=== PATIENT | female | born 1985 | race Caucasian/White ===

== ENCOUNTER 2021-10-02 19:59 | Inpatient (IN) ==
[2021-10-02] MEDS ORDERED: SODIUM CHLORIDE 0.9% 1000ML 1,000 ML IV ONE (20:16)
[2021-10-02 20:37] LABS: Basophils # (auto) 0.03 K/uL (0-0.2); Basophils % (auto) 0.2 %; Eosinophils # (auto) 0.18 K/uL (0-0.50); Eosinophils % (auto) 1.4 %; Hematocrit (blood only) 36.5 % (34.1-44.9); Hemoglobin 12.5 g/dl (12.0-16.0); Immature Granulocytes # (auto) 0.05 K/uL (0.00-0.02); Immature Granulocytes % (auto) 0.4 %; Lymphocytes # (auto) 1.38 K/uL (1.2-3.4); Lymphocytes % (auto) 10.9 %; Mean Corpuscular Hemoglobin 30.9 pg (25.0-34.0); Mean Corpuscular Hgb Conc 34.2 g/dL (32.0-36.0); Mean Corpuscular Volume 90.1 fL (80.0-100.0); Monocytes # (auto) 0.74 K/uL (0.24-0.82); Monocytes % (auto) 5.9 %; Neutrophils # (auto) 10.23 K/uL (1.4-6.5); Neutrophils % (auto) 81.2 %; Platelet Count 345 K/uL (130-400); RDW Coefficient of Variation 12.2 % (11.5-14.5); RDW Standard Deviation 39.8 fL (36.4-46.3); Red Blood Count 4.05 M/uL (3.93-5.22); White Blood Count 12.61 K/ul (4.8-10.8)
[2021-10-02] MEDS ORDERED: miSOPROStoL 200 MCG TAB PR ONE (20:43)
[2021-10-02] MEDS ORDERED: LACTATED RINGER'S 1,000 ML IV PRN (20:43)
[2021-10-02 20:58] LABS: Albumin Globulin Ratio 1.2 (0.9-2); Albumin Level 3.7 gm/dl (3.4-5.0); BUN Creatinine Ratio 7.4 (10-20); Bilirubin,Total 0.6 mg/dl (0.2-1.0); Calcium 9.1 mg/dl (8.5-10.1); Est GFR (African American) 132.3 ml/min; Est GFR (Non-African American) 114.1 ml/min; Potassium 3.4 mmol/L (3.5-5.1); Total Protein 6.7 gm/dl (6.0-8.3)
[2021-10-02] MEDS ORDERED: OXYTOCIN 30 UNITS/500 ML BAG IV PRN (21:26)
[2021-10-02] MEDS ORDERED: IBUPROFEN 600 MG TAB PO PRN (21:26)
[2021-10-02] MEDS ORDERED: ACETAMINOPHEN 325 MG TAB PO PRN (21:26)
[2021-10-02] MEDS ORDERED: DIPHTHERIA/TETANUS/PERTUSSIS 0.5 ML SYR/VIAL IM ONE (21:26)
[2021-10-02] MEDS ORDERED: BENZOCAINE 20% AER SPR 82.5 GM CAN EXT PRN (21:26)
[2021-10-02] MEDS ORDERED: HYDROCORTISONE ACETATE 25 MG SUPP PR PRN (21:26)
[2021-10-02] MEDS ORDERED: bisacodyL 10 MG SUPP PR PRN (21:26)
--- NOTE | 2021-10-02 21:55 | Labor Progress Brief Note ---
Date of Service October 02, 2021 Assessment & Plan (1) demise, less than 22 weeks, delivered, current hospitalization: Plan: demise after miscarriage at 16 weeks pt seen thru ER Placenta spontaneously delivered Good hemosatsis Anticipate disch AM Admission and Anticipated Discharge Date Admission Date: October 02, 2021 Results & Data ([facility]) Vital Signs (Past 12 Hours) Vital Signs Temp Pulse Resp BP Pulse Ox O2 Del Method 10/02/21 21:40 100 H 128/89 10/02/21 20:57 98 H 135/93 10/02/21 20:53 36.9 C 18 10/02/21 20:43 96 H 18 115/78 99 Room Air 10/02/21 20:30 Room Air 10/02/21 20:08 37 C 119 H 18 131/87 98 Room Air
[2021-10-02 22:01] LABS: Hematocrit (blood only) 36.9 % (34.1-44.9); Hemoglobin 12.4 g/dl (12.0-16.0); Mean Corpuscular Hemoglobin 30.8 pg (25.0-34.0); Mean Corpuscular Hgb Conc 33.6 g/dL (32.0-36.0); Mean Corpuscular Volume 91.8 fL (80.0-100.0); Mean Platelet Volume 9.2 fL (9.4-12.3); Platelet Count 339 K/uL (130-400); RDW Coefficient of Variation 12.2 % (11.5-14.5); RDW Standard Deviation 40.8 fL (36.4-46.3); Red Blood Count 4.02 M/uL (3.93-5.22); White Blood Count 15.11 K/ul (4.8-10.8)
--- NOTE | 2021-10-02 23:06 | Labor Progress Brief Note ---
Date of Service October 02, 2021 Assessment & Plan (1) demise, less than 22 weeks, delivered, current hospitalization: Plan: pt doing well wishes to be discharged home after 4 hrs disch home with instructions Admission and Anticipated Discharge Date Admission Date: October 02, 2021 Results & Data ([facility]) Vital Signs (Past 12 Hours) Vital Signs Temp Pulse Resp BP Pulse Ox O2 Del Method 10/02/21 22:40 36.9 C 18 10/02/21 22:25 18 10/02/21 22:10 18 10/02/21 21:55 10/02/21 21:40 10/02/21 22:56 81 125/80 10/02/21 22:41 89 131/84 10/02/21 22:26 86 141/89 H 10/02/21 22:11 76 137/87 10/02/21 21:56 84 125/84 10/02/21 21:40 100 H 128/89 10/02/21 20:57 98 H 135/93 10/02/21 20:53 36.9 C 10/02/21 20:43 96 H 18 115/78 99 Room Air 10/02/21 20:30 Room Air 10/02/21 20:08 37 C 119 H 18 131/87 98 Room Air
--- NOTE | 2021-10-02 23:11 | Consultation Report ---
DATE OF SERVICE: 10/02/2021 OB consult from the Emergency Room. HISTORY OF PRESENT ILLNESS: The patient is a 35-year-old G8, P1, at 16 weeks' gestation, who present ed to the Emergency Room after spontaneous rupture of membranes. In the Emergency Room, she was foun d to have delivered a 16-week fetus. Placenta, however, was intact. OB consult was called. When I e valuated her in the Emergency Room, she had no shortness of breath, no chills, no fever. There was v tahira little bleeding. The patient was resting comfortably in bed. As stated above, had been d elivered. Placenta, however, was still intact. course was unremarkable except for history of recurrent miscarriages. PAST MEDICAL HISTORY: The patient has a history of thyroid disease. PAST SURGICAL HISTORY: History of foot surgery. ALLERGIES: THE PATIENT IS ALLERGIC TO DOXYCYCLINE. FAMILY HISTORY: Noncontributory. OBSTETRIC AND GYNECOLOGIC HISTORY: The patient has a history of recurrent miscarriages. In this , she reports being seen at [facility] where she has been worked up. She has had a first trimester testing. PHYSICAL EXAMINATION: GENERAL: Well-developed, well-nourished white female in no acute distress. VITAL SIGNS: In the ER are stable. HEART: S1 and S2, regular rhythm and rate. LUNGS: Clear to auscultation bilaterally. ABDOMEN: Nontender. PELVIC: The patient has delivered a 16-week with placenta undelivered. EXTREMITIES: No cyanosis, clubbing or edema. ASSESSMENT AND PLAN: A 35-year-old 8, para 1, at 16 weeks demise. Infant was delivere d in bed. The patient will be sent to labor and delivery where she will be admitted and the placenta delivered. Job ID: [id number]
[2021-10-02 23:24] LABS: Partial Thromboplastin Time 26.5 Seconds (21.0-31.0); Prothrombin Time 10.8 Seconds (9.0-12.0)
--- NOTE | 2021-10-03 01:33 | Emergency Department Note ---
Impression & Plan demise, less than 22 weeks, delivered, current hospitalization ED Provider Note NAME: DAVID KONG AGE: 35 SEX: F ARRIVES VIA: Walk-In INFORMANT: Patient ED PROVIDER(S): Ha Lemus MD CHIEF COMPLAINT: Miscarriage PLAN: Disposition: Admit MEDICAL DECISION MAKING: The patient is a pleasant 35-year-old woman who presents to the emergency department for evaluation of acute miscarriage in the setting of being 16 weeks . Patient reports feeling water break at approximately 1900 and then had delivery of her fetus in route. Reports having episodes of diarrhea with nausea over the past several days. She reports having some spotting but denied any vaginal bleeding. The patient reports having a healthy 10-year-old son but since then has had numerous miscarriages but never as far along as now. On arrival, the patient is no acute distress, afebrile heart in the 110s and vital signs otherwise stable. On examination the patient does have a fetus delivered, still attached by umbilical cord to placenta which has yet to be delivered. No active hemorrhage. Case was discussed with Seven ALICEA on-call, Dr. Parry. Appreciate consultation and evaluation the bedside. Patient was subsequently admitted to the OB floor for further management. WBC 12K nonspecific. H/H and platelets within normal limits. Chemistry Metabolic acidosis. LFTs without significant abnormality. COVID-19 RNA, LORI test was negative. Blood type was O+, antibody screen negative. Triage Nursing notes reviewed and agree them. Prior medical records reviewed Vital Signs: reviewed and remarkable for tachycardia. Differential diagnosis: Etiologies such as threatened AB, miscarriage, ectopic , dysfunction uterine bleeding, bleeding dyscrasia, trauma, infection, as well as others were entertained. ER treatment provided: See below. Diagnostics interpreted by me: Cardiac Monitoring: An order for continuous cardiac monitoring was placed and demonstrated sinus tachycardia, 119 bpm, no ectopy. 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 Patient reports feeling water break at approximately 1900 and then had delivery of her fetus in route. Reports having episodes of diarrhea with nausea over the past several days. She reports having some spotting but denied any vaginal bleeding. The patient reports having a healthy 10-year-old son but since then has had numerous miscarriages but never as far along as now. ROS: See above HPI for pertinent positives & negatives. A total of 10 systems reviewed and were otherwise negative. VITALS:See Below PHYSICAL EXAMINATION: GENERAL: Awake, alert, uncomfortable-appearing, in no distress HENT: Normocephalic, atraumatic. Oropharynx with dry mucous membranes and otherwise unremarkable. EYES: Normal conjunctiva. Sclera non-icteric. NECK: Supple. No nuchal rigidity. FROM. No JVD. RESPIRATORY: Clear to auscultation. CARDIAC: Tachycardic rate, normal rhythm. Extremities warm and well perfused. Pulses equal. ABDOMEN: Soft, non-distended. No tenderness to palpation. No rebound or guarding. No masses. : fetus delivered, still attached by umbilical cord to placenta which has yet to be delivered. No hemorrhage. MUSCULOSKELETAL: Chest examination reveals no tenderness. The back is symmetrical on inspection without obvious abnormality. There is no CVA tenderness to palpation. No joint edema. LOWER EXTREMITIES: Calves are equal size bilaterally and non-tender. No edema. No discoloration. NEURO: Normal sensorium. No sensory or motor deficits noted. SKIN: No rash or jaundice noted. 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 Beliefs That Will Affect Care: None marital status: Single Current Living Situation: Family Other Information That Helps Us Care for You: No Feels Safe at Home: Yes Safety Concerns: Feels Safe At This Time Assistive Devices: Glasses Allergies Allergies Allergy/AdvReac Type Severity Reaction Status Date / Time tetracycline Allergy Unknown DOXYCYCLINE Verified 08/09/11 22:00 Home Meds Home Medications Medication Instructions Recorded Confirmed Multivit/Min/Iron/Fol Ac/Pren 1 tab PO DAILY #0 tabs 08/23/11 10/03/21 ( Vitamin) OMEPRAZOLE (Prilosec) 20 mg PO DAILY ##0 08/23/11 10/03/21 Previous Rx's Medication Instructions Recorded ibuprofen 600 mg tablet 600 mg PO Q4H #30 tabs 10/02/21 Results & Data (ED) Vital Signs Vital Signs - 24 hr 10/02/21 20:08 10/02/21 20:30 Temperature 37 C Temperature Source Oral Pulse Rate 119 H Pulse Strength Normal Respiratory Rate 18 Respiratory Effort / Characteristics Spontaneous Respiratory Depth Normal Blood Pressure 131/87 Blood Pressure Mean 101 Pulse Oximetry 98 Oxygen Delivery Method Room Air Room Air Sepsis Recent Fever Within 48 Hours No Sepsis New/Unexplained Change in Mental Status No Sepsis Action Taken by Nursing No Action Required Laboratory Data Attestation: I reviewed the patient's lab results. Result diagrams: 10/02/21 21:39 10/02/21 20:10 Lab Results 10/02/21 10/02/21 10/02/21 Range/Units 20:10 20:10 20:10 WBC 12.61 H (4.8-10.8) K/ul RBC 4.05 (3.93-5.22) M/uL Hgb 12.5 (12.0-16.0) g/dl Hct 36.5 (34.1-44.9) % MCV 90.1 (80.0-100.0) fL MCH 30.9 (25.0-34.0) pg MCHC 34.2 (32.0-36.0) g/dL RDW Std Deviation 39.8 (36.4-46.3) fL RDW Coeff of Joe 12.2 (11.5-14.5) % Plt Count 345 (130-400) K/uL MPV 9.0 L (9.4-12.3) fL Immature Gran % (Auto) 0.4 % Neut % (Auto) 81.2 % Lymph % (Auto) 10.9 % Harding % (Auto) 5.9 % Eos % (Auto) 1.4 % Baso % (Auto) 0.2 % Neut # (Auto) 10.23 H (1.4-6.5) K/uL Lymph # (Auto) 1.38 (1.2-3.4) K/uL Harding # (Auto) 0.74 (0.24-0.82) K/uL Eos # (Auto) 0.18 (0-0.50) K/uL Baso # (Auto) 0.03 (0-0.2) K/uL Immature Gran # (Auto) 0.05 H (0.00-0.02) K/uL Sodium 133 L (136-145) mmol/L Potassium 3.4 L (3.5-5.1) mmol/L Chloride 104 (98-107) mmol/L Carbon Dioxide 20 L (21-32) mmol/L Anion Gap 9 (3-11) BUN 5 L (6-23) mg/dl Creatinine 0.68 (0.6-1.2) mg/dl Est Cr Clr Drug Dosing 117.0 ml/min Est GFR ( Amer) 132.3 ml/min Est GFR (Non-Af Amer) 114.1 ml/min BUN/Creatinine Ratio 7.4 L (10-20) Glucose 105 H (70-99(Fasting)) mg/dl Calcium 9.1 (8.5-10.1) mg/dl Total Bilirubin 0.6 (0.2-1.0) mg/dl AST 12 L (13-39) U/L ALT 4 L (7-52) U/L Alkaline Phosphatase 57 (34-104) U/L Total Protein 6.7 (6.0-8.3) gm/dl Albumin 3.7 (3.4-5.0) gm/dl Globulin 3.0 (2.5-4.0) gm/dl Albumin/Globulin Ratio 1.2 (0.9-2) Lipase 42 (11-82) U/L TSH 2.535 (0.300-4.500) uIu/ml SARS-CoV-2, RNA, NAAT (NEGATIVE) Blood Type Antibody Screen 10/02/21 10/02/21 Range/Units 20:18 20:30 WBC (4.8-10.8) K/ul RBC (3.93-5.22) M/uL Hgb (12.0-16.0) g/dl Hct (34.1-44.9) % MCV (80.0-100.0) fL MCH (25.0-34.0) pg MCHC (32.0-36.0) g/dL RDW Std Deviation (36.4-46.3) fL RDW Coeff of Joe (11.5-14.5) % Plt Count (130-400) K/uL MPV (9.4-12.3) fL Immature Gran % (Auto) % Neut % (Auto) % Lymph % (Auto) % Harding % (Auto) % Eos % (Auto) % Baso % (Auto) % Neut # (Auto) (1.4-6.5) K/uL Lymph # (Auto) (1.2-3.4) K/uL Harding # (Auto) (0.24-0.82) K/uL Eos # (Auto) (0-0.50) K/uL Baso # (Auto) (0-0.2) K/uL Immature Gran # (Auto) (0.00-0.02) K/uL Sodium (136-145) mmol/L Potassium (3.5-5.1) mmol/L Chloride (98-107) mmol/L Carbon Dioxide (21-32) mmol/L Anion Gap (3-11) BUN (6-23) mg/dl Creatinine (0.6-1.2) mg/dl Est Cr Clr Drug Dosing ml/min Est GFR ( Amer) ml/min Est GFR (Non-Af Amer) ml/min BUN/Creatinine Ratio (10-20) Glucose (70-99(Fasting)) mg/dl Calcium (8.5-10.1) mg/dl Total Bilirubin (0.2-1.0) mg/dl AST (13-39) U/L ALT (7-52) U/L Alkaline Phosphatase (34-104) U/L Total Protein (6.0-8.3) gm/dl Albumin (3.4-5.0) gm/dl Globulin (2.5-4.0) gm/dl Albumin/Globulin Ratio (0.9-2) Lipase (11-82) U/L TSH (0.300-4.500) uIu/ml SARS-CoV-2, RNA, NAAT NEGATIVE (NEGATIVE) Blood Type O Positive Antibody Screen NEGATIVE Administered Medications Discontinued Medications Sodium Chloride (Nss 1000ml) 1,000 mls @ 999 mls/hr IV .Q1H1M ONE Stop: 10/02/21 21:16 Last Admin: 10/02/21 21:01 Dose: Not Given Documented By: DIANE Lactated Ringer's (Lr) 1,000 mls @ 125 mls/hr IV .Q8H PRN; Protocol PRN Reason: L&D Protocol Stop: 10/04/21 20:42 Last Infusion: 10/03/21 00:00 Dose: 0 mls/hr Documented By: Admin: 10/02/21 21:18 Dose: 125 mls/hr Documented By: AL Oxytocin (Pitocin) 30 units in 500 mls @ 333.333 mls/hr IV .Q1H30M PRN; Protocol PRN Reason: Bleeding Control Stop: 11/01/21 21:25 Last Titration: 10/02/21 22:00 Dose: 0 units/hr, 0 mls/hr Documented By: Admin: 10/02/21 21:20 Dose: 59.94 units/hr, 999 mls/hr Documented By: AL Co-signed By: OSMAN Misoprostol (Misoprostol 200 Mcg Tab) 800 mcg ME NOW ONE Stop: 10/02/21 20:44 Last Admin: 10/02/21 21:11 Dose: 800 mcg Documented By: AL Discharge Plan Visit Data Chief Complaint: Vaginal Bleeding Stated Complaint: Vaginal Bleeding, MISCARRAIGE ED Provider: Ha Lemus Discharge Problem: demise, less than 22 weeks, delivered, current hospitalization Patient Disposition: Admitted As Inpatient Discharge Instructions Interventions: ED Discharge Assessment Last Done: 10/02/21 20:43
[2021-10-03 02:17] LABS: Appearance Urine Clear (Clear); Bacteria Urine Automated Negative (Negative); Bilirubin Urine Negative (Negative); Blood Urine 3+ (Negative); Color Urine Red; Glucose Urine UA Negative (Negative); Ketones Urine 1+ (Negative); Leukocyte Esterase Urine Trace (Negative); Nitrite Urine Negative (Negative); Protein Urine 1+ (Negative); RBC Urine Automated >30 /hpf (0-4); Specific Gravity Urine 1.008 (1.000-1.030); Urobilinogen Urine Negative (Negative); pH Urine 5.5 (4.5-7.5)
[2021-10-03 02:47] LABS: Amphetamines+Metham, Urine Neg (Neg); Barbiturates, Urine Neg (Neg); Benzodiazepine, Urine Neg (Neg); Cocaine, Urine Neg (Neg); MDMA (Ecstacy), Urine Neg (Neg); Methadone, Urine Neg (Neg); Opiate, Urine Neg (Neg); Phencyclidine, Urine Neg (Neg)
--- NOTE | 2021-10-03 06:20 | Delivery Summary ---
DELIVERY NOTE The patient was seen in the emergency room, she is a 35-year-old G8, P1 at 16 weeks, presen homer to the Emergency Room after spontaneous rupture of membranes. In the Emergency Room, she delivered a demise 16-week fetus. OB was called. On arrival to the emergency Room patient had the fetus delivered. Placenta was intact. The patient was brought up to labor and delivery where the co rd was clamped and cut. The patient delivered the placenta spontaneously. Speculum exam showed she still some retained placenta, which was easily removed through the cervix with a ring forceps. All instruments were removed from the vagina and accounted for x2. Estimated blood loss was about 30 0 mL. Uterus is firm. There is good hemostasis and the patient is being kept here for observation. Job ID: [id number]
[2021-10-03] MEDS ORDERED: PRENATAL VITAMIN 1 TAB PO SCH (08:00)
[2021-10-03] MEDS ORDERED: DOCUSATE SODIUM 100 MG CAP PO SCH (08:00)
[2021-10-03 08:12] LABS: Estimated Average Glucose 97 mg/dl
[2021-10-03] MEDS ORDERED: bisacodyL 5 MG TABEC PO SCH (20:00)
[2021-10-09 17:47] LABS: Herpes Simplex Ab IgG-2 <0.90 INDEX; Interpretation DNR; PTT LA Screen 31 sec (<=40); Rubella IgG 1.39 INDEX; Toxoplasma Gondii IgM <8.00 AU/mL
[2021-10-13 11:17] LABS: Chlamydia Source GENITAL
--- NOTE | 2021-10-18 20:43 | Discharge Summary (DS) ---
DATE OF ADMISSION: 10/02/2021 DATE OF DISCHARGE: 10/03/2021 CHIEF COMPLAINT: demise at 16 weeks. HISTORY OF PRESENT ILLNESS: This is a 35-year-old G8, P1, at 16 weeks who presented to the Emergency Room after a spontaneous rupture of membranes and delivery of infant on arrival to the ER. The patient already delivered an . Cord was intact and placenta was not delivered yet. The pa tient was brought up to labor and delivery, given Cytotec where she eventually spontaneously delivere d the placenta. PAST MEDICAL HISTORY: 1. History of habitual . 2. Gastroesophageal reflux disease. PAST SURGICAL HISTORY: None. SOCIAL HISTORY: The patient denies tobacco, drug or alcohol use. FAMILY HISTORY: Noncontributory. ALLERGIES: ALLERGIC TO DOXYCYCLINE. FAMILY HISTORY: Noncontributory. REVIEW OF SYSTEMS: As dictated above. PHYSICAL EXAMINATION: VITAL SIGNS: On 10/03/2021, blood pressure is 124/81, respiration is 18, temperature is 36.8. HEART: S1 and S2 regular rhythm and rate. LUNGS: Clear to auscultation bilaterally. ABDOMEN: Nontender, nondistended. EXTREMITIES: No cyanosis, clubbing or edema. LABORATORIES: On 10/03/2021, hemoglobin of 12.4, hematocrit of 36.9. CONDITION ON DISCHARGE: Stable. OPERATIONS: demise at 16 weeks. Spontaneous delivery of a 16-week gestation fetus. DISCHARGE DIAGNOSIS: Post-delivery of a 16-week fetus. PLAN ON DISCHARGE: The patient is discharged home with instructions regarding activity, diet, and [facility] appointment. Job ID: [id number]
== END 2021-10-03 02:00 | disposition home or self-care (01) | DRG 807 ==
LOC: ED 19:59 → 4S1 20:43

== ENCOUNTER 2023-01-09 11:06 | Inpatient (IN) ==
[2023-01-09] MEDS ORDERED: OXYTOCIN 30 UNITS/NSS 30 UNITS/500 ML BAG IV PRN (11:46)
[2023-01-09] MEDS ORDERED: LIDOCAINE 1% LOCAL 20 ML VIAL INFIL PRN (11:46)
[2023-01-09] MEDS ORDERED: DINOPROSTONE 10 MG INSERT PV ONE (11:46)
[2023-01-09] MEDS ORDERED: LEVOTHYROXINE SODIUM 125 MCG TABLET PO ONE (12:00)
[2023-01-09] MEDS ORDERED: PANTOprazole 40 MG TAB PO SCH (12:00)
--- NOTE | 2023-01-09 12:10 | History & Physical Report ---
Date of Service January 09, 2023 Assessment & Plan (1) Gestational [-induced] hypertension without significant pro teinuria, complicating childbirth: Plan: 37 yo AT 37.3 Wks, with GHTN VSS Afebrile FHR reassuring GBS negative Cervix unfavorable Plan to admit, labs, cervical ripening with Cervidil Discussed what to expect All questions were answered. (2) Hypothyroid: Admission and Anticipated Discharge Date Admission Date: January 09, 2023 History of Present Illness Primary Care Provider: NO PCP Patient is a 37-year-old at 37 weeks and 3 days of gestation who was scheduled for IOL for GTHN. Her has been complicated by, 1. Gestational hypertension during this , on labetalol, 2. History of recurrent spontaneous , last 1 was at 16 weeks on 2021, 3. Hypothyroidism during , Patient has no complaints. She denies headaches, change in her vision, nausea vomiting, epigastric or right upper quadrant pain. She denies contractions, leakage of fluid, vaginal bleeding. She reports good movements. Allergies Allergy/AdvReac Type Severity Reaction Status Date / Time tetracycline Allergy Unknown DOXYCYCLINE Verified 08/09/11 22:00 Home Medications Medication Instructions Recorded Confirmed Type Multivit/Min/Iron/Fol Ac/Pren 1 tab PO DAILY #0 tabs 08/23/11 01/09/23 History ( Vitamin) OMEPRAZOLE (Prilosec) 20 mg PO DAILY ##0 08/23/11 01/09/23 History ferrous sulfate 325 mg (65 mg 325 mg PO DAILY 01/04/23 01/09/23 History iron) tablet (iron) labetalol 100 mg tablet 100 mg PO TID 01/04/23 01/09/23 History levothyroxine 125 mcg capsule 125 mcg PO DAILY 01/04/23 01/09/23 History Patient History Medical History (Updated 01/09/23 @ 12:09 by Danae Quiros MD) Left ACL tear with repair PUPP (pruritic urticarial papules and plaques of ) Polyhydramnios Hypothyroid Patient's mom has Grave's Disease GERD (gastroesophageal reflux disease) History of recurrent miscarriages Family History Mother Graves disease Grandmother (Maternal) Stroke Grandmother (Maternal) Hypertension Other Family history non-contributory Social History Smoking Status: Never smoker Hx Alcohol Use: No Hx Substance Use: No Preferred Language: Somali Communication Ability: Effective 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 Operator Required: No Beliefs That Will Affect Care: None marital status: Single marital status details: Phani Morales Current Living Situation: Family current occupational status: employed current occupation: [employer] Feels Safe at Home: Yes Diet: regular Dental Care, Regularly: No Sunscreen Use: Yes Assistive Devices: None OB History 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 2012, 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 No h/o STD Review of Systems as per Subjective / HPI Physical Exam Constitutional: WD/WN, vitals as above well developed, well nourished and comfortable Gastrointestinal (Abdomen): normal bowel sounds, soft, nontender, no hepatosplenomegaly (GRAVID) Genitourinary: normal external appearance OB Exam Abdomen: + vertex (Confirmed by bed side US) Manual OB Exam: + cervical dilation 1 cm, + cervical effacement 50% and + station high (-4) OB Exam Monitor Tracing: + external uterine monitor used and + category I Results & Data Vital Signs (Past 12 Hours) Vital Signs Pulse BP 01/09/23 11:42 95 H 127/86 01/09/23 11:25 108 H 130/92
[2023-01-09 12:57] LABS: Hematocrit (blood only) 31.9 % (37.0-47.0); Hemoglobin 10.6 g/dl (12.0-16.0); Mean Corpuscular Hemoglobin 29.8 pg (25.0-34.0); Mean Corpuscular Hgb Conc 33.2 g/dL (32.0-36.0); Mean Corpuscular Volume 89.6 fL (80.0-100.0); Mean Platelet Volume 9.6 fL (9.4-12.4); Platelet Count 326 K/uL (130-400); RDW Coefficient of Variation 14.1 % (11.5-14.5); RDW Standard Deviation 46.2 fL (36.4-46.3); Red Blood Count 3.56 M/uL (4.20-5.40); White Blood Count 9.03 K/ul (4.8-10.8)
[2023-01-09] MEDS: LABETALOL HCL 100 MG TAB PO SCH ×2 (14:19→20:56)
--- OUTSIDE RECORDS SUMMARY | 2023-01-09 17:58 | External Medical Summary | Summary of Care ---
Author Name Unknown Organization [facility] Address [address] [place] [address] Phone [phone] Care Team Providers Care Lyric Writer Name Role Phone Tunde Levi MD Primary Care Provider + Encounter Details Date Type Department Care Team (Late st Contact Info) Description 01/09/2023 Orders Only Gynecology/Obstetrics [facility] [address] [facility] [place] [address] Anabela Stallworth CRNP [address] [place] [address] Allergies Active Allergy Reactions Criticality Noted Date Comments Doxycycline 12/22/2003 documented as of this encounter (statuses as of 01/09/2023) Medications Medication Sig Dispensed Refills Start Date End Date Status MV-Min-Fe Fum-FA-DHA ( 1) 30-0.975-200 MG Capsule Take 1 Cap by mouth daily. 0 Active Pantoprazole Sodium 40 MG Oral Tablet Delayed Release (Protonix) Take 1 Tablet by mouth in the morning. 90 Tablet 3 06/29/2022 Active Levothyroxine Sodium 100 MCG Oral Tablet (Levoxyl)Indications :Hypothyroidism, unspecified type Take 1 Tablet by mouth in the morning. (at least 30 min prior to breakfast or other meds). 90 Tablet 1 08/24/2022 Active Breast PumpIndications:[place] st feeding status of mother Double electric pump, Z39.1, JUNE 01/26/23 1 Each 0 11/07/2022 Active Levothyroxine Sodium 25 MCG Oral Tablet (Levoxyl)Indications :Hypothyroid in , antepartum Take 1 Tablet by mouth in the morning. (at least 30 min prior to breakfast or other meds). Take WITH 100 mcg dose.. 90 Tablet 1 11/08/2022 Active Labetalol HCl 100 MG Oral Tablet (Normodyne)Indicatio ns:HTN in , chronic Take 2 Tablets by mouth in the morning and 2 Tablets at noon and 2 Tablets before bedtime. 0 12/03/2022 Active documented as of this encounter (statuses as of 01/09/2023) Active Problems Problem Noted Date Diagnosed Date Polyhydramnios 12/28/2022 Overview: Mild at 35 weeks with 33 completed weeks gestation 11/13 Gestational hypertension without significant pro teinuria 12/07/2022 Overview: Labetalol 200 mg TID BP this morning at home was 137/82 Patient reports lingering headache for several days, poor relief with Tylenol Denies blurred vision, numbness or tingling of face/arms Reports + swelling in hands and feet, but not any increase from last visit Denies abdominal discomfort Is feeling + movement Reviewed s/s of preeclampsia and when to call OB provider BP Readings from Last 10 Encounters: 12/07/22 : 132/84 12/03/22 : 140/90 11/29/22 : 110/80 11/26/22 : 130/82 11/23/22 : 140/92 11/07/22 : 124/76 10/09/22 : 128/80 09/11/22 : 120/72 09/06/22 : 124/72 08/28/22 : 126/82 Baseline Preeclampsia Labs Lab Results Component Value Date/Time PLATELET AUTO - [facility] 365 11/23/2022 03:15 PM CREATININE - [facility] 0.6 11/26/2022 02:55 PM AST - [facility] 9 (L) 11/23/2022 03:15 PM ALT - [facility] <5 (L) 11/23/2022 03:15 PM PROTEIN/ CREATININE RATIO, URINE - [facility] 97 11/23/2022 02:45 PM Last Assessment & Plan: I reviewed the ultrasound. The anatomy that was visualized appears unremarkable and the amniotic fluid volume is elevated at 27 cm, indicating mild polyhydramnios. The overall estimated weight is consistent with the 23rd percentile for the gestational age. The biophysical profile is 8 out of 8. As the patient will be delivered at 37 weeks of gestation due to gestational hypertension, there is no clinical indication for return. PUPPP (pruritic urticarial p apules and plaques of ) 12/07/2022 Health counseling 11/23/2022 Overview: Problem Action Taken Date entered Entered by Date resolved Current needs or questions Patient denies having any current needs or questions 11/23/2022 Monica Bean RN 11/23/2022 Problem Action Taken Date entered Entered by Date resolved Current needs or questions Patient denies having any current needs or questions 12/07/2022 Monica Bean RN 12/07/2022 Problem Action Taken Date entered Entered by Date resolved Current needs or questions Patient denies having any current needs or questions 12/18/2022 Monica Bean RN 12/18/2022 Problem Action Taken Date entered Entered by Date resolved Current needs or questions Patient denies having any current needs or questions 12/25/2022 Gabriela Rudd RN 12/25/2022 Problem Action Taken Date entered Entered by Date resolved Current needs or questions Patient denies having any current needs or questions 12/28/2022 Monica Bean RN 12/28/2022 Problem Action Taken Date entered Entered by Date resolved Current needs or questions Patient denies having any current needs or questions 01/01/2023 Monica Bean RN 01/01/2023 Problem Action Taken Date entered Entered by Date resolved Current needs or questions Patient denies having any current needs or questions 01/08/2023 Gabriela Rudd RN 01/08/2023 Uterine fibroid in 09/03/2022 Last Assessment & Plan: The overall estimated weight is consistent with the 30th percentile for the gestational age and the anatomy that was visualized appears unremarkable. The amniotic fluid volume is normal at 21 cm and the fetus is in the vertex presentation. Medication exposure during first trimester of pr egnancy 06/18/2022 Overview: Medication exposure to Adderall for ADD which she stopped with knowledge of the Last Assessment & Plan: Discussed that every woman has a background risk for a 3-5% chance of having a baby with a defect. We review the risks and benefits to promote discussion between the the prescribing provider and patient but ultimately it is the patient and prescribing provider's decision. It is important to consider risk to the fetus versus risk of untreated illness. In some cases it is reasonable to continue these medications in , but this must be determined on an individualized basis. Adderall (dextroamphetamine/amphetamine). Crosses Placenta. There are no adequate and well-controlled studies in women. Amphetamines should be used during only if the potential benefit justifies the potential risk to the fetus. Nonteratogenic Effects: Infants born to women who are dependent on amphetamines have an increased risk of premature delivery, low weight, and may experience symptoms of withdrawal (dysphoria, agitation, and significant lassitude). AMA (advanced maternal age) multigravida 35+ 06/2022 Overview: Age 37 at [facility] Desires Qnatal Last Assessment & Plan: She presents for a anatomy survey secondary to AMA. She has a history of hypothyroidism, class I obesity, recurrent loss, and ADHD (not currently on medications). Labs reviewed: -- cffDNA low risk for aneuploidy -- msAFP low risk for ONTD -- TSH 1.54 on 08/09/22 -- early 1 hour GCT elevated, 3 hour GTT normal We reviewed the results of today's ultrasound. The estimated weight is appropriate for gestational age. The visualized anatomy is unremarkable in appearance. The amniotic fluid amount appears normal. A small posterior retroplacental fibroid measuring 2.4 cm is noted. We discussed that ultrasound is not able to identify all anomalies, but it is reassuring that no anomalies were seen today. Hypothyroid in , antepartum 06/15/2022 Overview: Hypothyroidism Denies history of Graves Disease Recent medication increase to Levothyroxine 125 mcg Lab Results Component Value Date/Time TSH - [facility] 3.52 11/07/2022 07:53 AM TSH - [facility] 3.42 11/07/2022 07:53 AM TSH - [facility] 1.99 09/01/2018 04:54 PM Last Assessment & Plan: CONSIDERATIONS: Discussed with the patient that uncontrolled maternal hypothyroidism is associated with compromised neuropsychological development of the developing fetus in addition to an increased risk of miscarriage, , preeclampsia, placental abruption, low weight infants, and IUFD. These risks are modifiable with thyroid-replacement medications. Thyroid-replacement therapies are safe to use during and essential to normal development. One third of hypothyroid patients will require increased T4 supplementation in . Discussed that she should space her thyroxine dose and her vitamin, iron or calcium doses by 2-3 hours as these can interfere with thyroxine absorption. If hypothyroidism is due to treated Graves' disease, the fetus may be at risk for or goiter/hyperthyroidism due to the residual presence of maternal thyroid receptor antibodies (TRAb). RECOMMENDATIONS: In women with pre- diagnosis of hypothyroidism, recommend assessing TSH every 4-6 weeks until the patient is euthyroid based on TSH (first trimester, 0.1-2.5 mIU/L; second trimester, 0.2-2.5 mIU/L; third trimester, 0.3-2.5 mIU/L). After any adjustment of thyroid replacement dosing, recheck TSH 4-6 weeks later. Once euthyroidism is attained, TSH should be assessed every trimester. In those with previous radioiodine ablation or thyroidectomy, anticipatory increases of T4 replacement by 25% are suggested to decrease the likelihood of significant hypothyroidism in . Maternal Medicine ultrasound is only indicated if patient requires an adjustment of her thyroid replacement therapy dosing after the first trimester of . Refer back to MFM if this occurs. She should continue to have growth assessments with MFM while she is clinically hypothyroid. If patient experiences thyroid goiter or nodule during , we recommend that she be referred to endocrinology for evaluation and management. is not a contraindication to fine needle aspiration but should be handled at the discretion of the mysql database administrator. For women with a history of treated Graves' disease, third trimester MFM ultrasound should be performed to evaluate for goiter. Please refer immediately back to MFM for persistent tachycardia on office evaluation as this may also be a symptom of hyperthyroidism. Please check TSI/TRAb after 20 weeks and notify MFM if positive. We will alert pediatrics to the need for possible follow-up. If hypothyroidism is poorly controlled, consider weekly NSTs at 32 weeks. 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 Most recent was last year, 16 weeks Last Assessment & Plan: DISCUSSION: 1. Discussed that 15-20% of all pregnancies result in miscarriage. Of these, approximately 90% are a result of chromosomal or anatomical defects which are not compatible with life. Other etiologies include maternal metabolic disease, uterine abnormalities, maternal/paternal chromosome abnormalities, or maternal acquired thrombophilias. 2. Explained that unfortunately, the cause of recurrent loss can be determined in only 50% of patients, but it is important to remember that most women with recurrent losses (3 or more miscarriages) have a good prognosis for eventually having a successful (approximately 71-77%), whether or not a definitive diagnosis is made and treatment initiated. 3. Discussed that in a first , the risk of miscarriage is 11-13%. After one miscarriage, this rate rises slightly to 14-21%. After two miscarriages the recurrence rate is 24-29% and after three miscarriages the recurrence rate is 31-33%. These rates can, however, be significantly altered by several factors including the cause of the miscarriages, advanced maternal age, multiparity, previous live outcome, and gestational age at the time of the previous losses. RECOMMENDATIONS: 1. Chromosome studies could be considered for the couple experiencing recurrent loss. 2. Evaluation for the cause of recurrent loss may include sonohysterography or hysterosalpingogram in the non patient and abdominal/transvaginal ultrasound in the patient for detection of a uterine abnormality which are thought to be responsible for 10-50% of recurrent miscarriages. Some abnormalities are surgically correctable but are major uterine surgery and there are no randomized, controlled studies evaluating outcome after surgical correction of uterine anomalies. 3. Recommend testing for maternal diabetes mellitus with hemoglobin A1C and for thyroid disease with TSH. 4. Discussed that we can test for acquired thrombophilias, but that even if a thrombophilia is discovered, it is not necessarily the cause of miscarriage. Recommend testing with anticardiolipin antibodies, lupus anticoagulant, and anti-B2 glycoproteins. Hypothyroidism 08/18/2021 Overview: TSH Results: Lab Results Component Value Date/Time TSH - [facility] 1.99 09/01/2018 04:54 PM TSH - [facility] 5.39 (H) 07/03/2018 02:31 PM TSH - [facility] 2.93 07/02/2011 12:03 PM TSH - OUTSIDE LAB 4.14 (A) 08/22/2021 12:00 AM TSH W/REFLEX TO FT4-QUEST H 4.15 10/06/2020 12:00 AM History of 2019 novel coronavirus disease (COVID -19) 12/01/2020 Obesity in , antepartum 10/21/2020 Overview: Pregravid BMI 32.07 Lab Results Component Value Date/Time 50-G GESTATIONAL GLUCOSE, 1 HOUR - [facility] 130 (H) 07/12/2022 01:58 PM Early glucose screen ordered; not complete to date Last Assessment & Plan: CONSIDERATIONS: Discussed obstetrical risks associated with class I obesity (pre- BMI of 30 to 34.9) Reviewed that the accuracy of ultrasound at diagnosing anomalies is significantly decreased for women with an increased BMI. RECOMMENDATIONS: Recommend restricting weight gain during to 11-20 pounds. Consider referral for nutrition consult. Recommend evaluation for signs and symptoms (snoring, excessive daytime sleepiness witnessed apnea or unexplained hypoxia) of obstructive sleep apnea. If any of these are present, referral to Sleep Medicine specialist for further evaluation should be considered. Recommend performing gestational diabetes mellitus screen at first visit and repeat again at 26-28 weeks if early screen is normal. Recommend Maternal- Medicine ultrasound for anatomy at 20 weeks. 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 AUDIT-C Answer Date Recorded Frequency of Alcohol Consumption 2-4 times a sat07/03/2018 Average Number of Drinks Not on file 019 Frequency of Binge Drinking Not on file 06/12 PHQ-2 Answer Date Recorded PHQ Adult Total Score 0 12/18/2022 Hunger Vital Sign Answer Date Recorded Within the past 12 months, y ou worried that your food would run out before you got the money to buy more. Never true 09/01/19 23 Within the past 12 months, t he food you bought just didn't last and you didn't have money to get more. Never true 08/31/2022 Mun[place] Depression Scale Answer Date Recorded [place] Depression Scale Total 4 11/07/2022 The thought of harming myself has occurred to me . Never 11/07/2022 Estimated Date of Delivery Comme nts Yes 01/26/2023 Based on last me nstrual period of 04/21/2022 (Exact Date) Sex and Gender Information Value Date Recorded Sex Assigned at Female 08/03/2021 7:22 PM EDT Gender Identity Female 08/03/2021 7:22 PM EDT Sexual Orientation Straight 08/03/2021 7: 22 PM EDT Job Start Date Occupation Industry Not on file Not on file Not on file documented as of this encounter Plan of Treatment Upcoming Encounters Date Type Department Care Team (Late st Contact Info) Description 01/11/2023 10:15 AM EST Office Visit Gynecology/Obstetrics [facility] [address] [place] [id number] Anabela Stallworth CRNP [address] [place] [address] Denys Non Stress Tests Tonya [address] [place] [address] 01/15/2023 1:45 PM EST Office Visit Gynecology/Obstetrics [facility] Denys [address] [place] [address] Anabela Stallworth CRNP [address] [place] [address] Azucena Mcfarlane Stress Tests Tonya [address] [place] [address] Health Maintenance Due Date Last Done Comments Hepatitis B (1 of 3 - 3-dose series) 1985 COVID-19 Vaccine (#1) 05/14/1987 Influenza Vaccine (FLU shot) (#1) 2022 01/20/2010 PAP SMEAR-EVERY 5 YRS,AGES 21-100 09/02/2023 09/01/2018, 05/30/2012, 01/02/2011 Depression Screening 12/19/2023 12/18/2022 TSH 12/29/2023 12/28/2022, 10/13, 11/07/2022, Additional history exists GFR 01/09/2024 01/08/2023, 12/13, 12/28/2022, Additional history exists Diabetes Screening 01/08/2026 01/08/2023, 1 03/06/2022, 08/09/2022, Additional history exists DTaP,Tdap,and Td Vaccines (3 - Td or Tdap) 11/07/2032 11/07/2022, 01/28/2015 Pap Smear Discontinued 09/01/2018, 05/12, 01/02/2011 GARDASIL-HPV IMMUNIZATION SERIES Aged Out No longer eligible based on patient's age to complete this topic MENINGOCOCCAL (MENACTRA/MENVEO) Aged Out No longer eligible based on patient's age to complete this topic Pneumococcal Vaccine: Pediatrics (0 to 5 Years) and At-Risk Patients (6 to 64 Years) Aged Out No longer eligible based on patient's age to complete this topic documented as of this encounter Medical Devices Not on filedocumented as of this encounter Procedures Procedure Name Priority Date/Time Associated Diagnosis Comments CHEMISTRY-OUTSIDE Routine 01/08/2023 documented in this encounter Results * (ABNORMAL) CHEMISTRY-OUTSIDE (01/08/2023) Not all results display below - see scan for full detail OUTSIDE LAB (SEE SCANNED REPORT) Comment:SEE SCAN: CBCD, URPC R CREATININE-OUTSID E LAB OUTSIDE LAB (SEE SCANNED REPORT) EGFR-OUTSIDE LAB OUT SIDE LAB (SEE SCANNED REPORT) POTASSIUM-OUTSIDE LAB OUTSIDE LAB (SEE SCANNED REPORT) GLUCOSE-OUTSIDE LAB OUTSIDE LAB (SEE SCANNED REPORT) HOURS FASTING OUTSID E LAB (SEE SCANNED REPORT) TRIGLYCERIDES-OUT SIDE LAB OUTSIDE LAB (SEE SCANNED REPORT) CHOLESTEROL-OUTSI DE LAB OUTSIDE LAB (SEE SCANNED REPORT) HDL-OUTSIDE LAB OUTS [facility] LAB (SEE SCANNED REPORT) CHOL/HDL RATIO-OUTSIDE LAB OUTSIDE LA B (SEE SCANNED REPORT) LDL (CALCULATED)-OUTS [facility] LAB OUTSIDE LAB (SEE SCANNED REPORT) LDL (DIRECT MEASURE)-OUTSIDE LAB OUTSIDE LAB (SEE SCANNED REPORT) HEMOGLOBIN, D6N-PATCIZD LAB OUTSIDE LAB (SEE SCANNED REPORT) PHOSPHORUS-OUTSID E LAB OUTSIDE LAB (SEE SCANNED REPORT) PTH-OUTSIDE LAB OUTS [facility] LAB (SEE SCANNED REPORT) MICROALBUMIN RATIO-OUTSIDE LAB OUTSIDE LA B (SEE SCANNED REPORT) PROTEIN, UA-OUTSIDE LAB OUTSIDE LAB (SEE SCANNED REPORT) HEMOGLOBIN-OUTSID E LAB 10.8(L) 12.0 - 15.0 G/DL OUTSIDE LAB (SEE SCANNED REPORT) 01/08/2023 Anabela ALBA LABORATORY OUTSIDE LAB (SEE SCANNED REPORT) documented in this encounter Care Teams Lyric Writer Relationship Specialty Start Date End Date Tunde Levi MD [address] [place] [id number] PCP - General Family Medicine 01/04/15 documented as of this encounter
--- OUTSIDE RECORDS SUMMARY | 2023-01-09 17:58 | External Medical Summary | Summary of Care ---
Author Name Unknown Organization [facility] Address [address] [place] [address] Phone [phone] Care Team Providers Care Retail Zone Specialist Name Role Phone Tunde Levi MD Primary Care Provider + Encounter Details Date Type Department Care Team (Late st Contact Info) Description 01/08/2023 Orders Only Gynecology/Obstetrics [facility] [address] [facility] [place] [address] Anabela Stallworth CRNP [address] [facility] [place] [address] Allergies Active Allergy Reactions Criticality Noted Date Comments Doxycycline 12/22/2003 documented as of this encounter (statuses as of 01/08/2023) Medications Medication Sig Dispensed Refills Start Date [...] meds). 90 Tablet 1 08/24/2022 Active Breast PumpIndications:[place] st feeding status of mother Double electric [...] as of this encounter (statuses as of 01/08/2023) Active Problems Problem Noted Date Diagnosed Date [...] multigravida 35+ 06/2022 Overview: Age 37 at [facility] Desires Qnatal Last Assessment & Plan: She [...] be handled at the discretion of the continuous towel roller. For women with a history of treated [...] 32 weeks. 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 Never true 08/31/2022 [place] Depression Scale Answer Date Recorded [place] Depression Scale Total 4 11/07/2022 The thought [...] Gynecology/Obstetrics [facility] [address] [place] [address] Anabela Stallworth CRNP [address] [place] [address] Denys Non Stress Tests Tonya [address] [place] [id number] 01/15/2023 1:45 PM EST Office Visit Gynecology/Obstetrics [facility] Denys [address] [place] [address] Anabela Stallworth CRNP [address] [place] [address] Azucena Mcfarlane Stress Tests Tonya [address] [place] [address] Health Maintenance Due Date Last Done Comments Hepatitis B (1 of 3 - 3-dose series) 1985 COVID-19 Vaccine (#1) 05/14/1987 Influenza Vaccine (FLU shot) (#1) 2022 01/20/2010 PAP SMEAR-EVERY 5 YRS,AGES 21-100 09/02/2023 09/01/2018, 05/30/2012, 01/02/2011 Depression Screening 12/19/2023 12/18/2022 TSH 12/29/2023 12/28/2022, 10/13, 11/07/2022, Additional history exists GFR 01/05/2024 01/08/2023, 12/13, 12/28/2022, Additional history exists Diabetes Screening 01/04/2026 01/08/2023, 1 03/06/2022, 08/09/2022, Additional history exists [...] detail OUTSIDE LAB (SEE SCANNED REPORT) Comment:SEE SCAN; CMP; UA CREATININE-OUTSID E LAB 0.50(L) 0.6 - 1.2 MG/DL OUTSIDE LAB (SEE SCANNED REPORT) EGFR-OUTSIDE LAB 124.5 ML/MIN/1.7 3M2 OUTSIDE LAB (SEE SCANNED REPORT) POTASSIUM-OUTSIDE LAB 3.7 3.5 - 5.1 MMOL/L OUTSIDE LAB (SEE SCANNED REPORT) GLUCOSE-OUTSIDE LAB 103(H) 70 - 99 MG/DL OUTSIDE LAB (SEE SCANNED REPORT) HOURS FASTING [...] LAB OUTSIDE LAB (SEE SCANNED REPORT) HEMOGLOBIN, [id number] LAB OUTSIDE LAB (SEE SCANNED REPORT) PHOSPHORUS-OUTSID E LAB OUTSIDE LAB (SEE SCANNED REPORT) PTH-OUTSIDE LAB OUTS [facility] LAB (SEE SCANNED REPORT) MICROALBUMIN RATIO-OUTSIDE LAB OUTSIDE LA B (SEE SCANNED REPORT) PROTEIN, UA-OUTSIDE LAB OUTSIDE LAB (SEE SCANNED REPORT) HEMOGLOBIN-OUTSID E LAB OUTSIDE LAB (SEE SCANNED REPORT) 01/08/2023 History Per Patient LABORATORY OUTSIDE LAB (SEE SCANNED REPORT) documented in this encounter Care Teams Retail Zone Specialist Relationship Specialty Start Date End Date Tunde Levi MD [address] [id number] PCP - General Family Medicine 01/04/15 documented as of this encounter
--- OUTSIDE RECORDS SUMMARY | 2023-01-09 17:58 | External Medical Summary | Summary of Care ---
Author Name Unknown Organization [facility] Address [address] [place] [address] Phone [phone] Care Team Providers Care Career And Guidance Counselor Name Role Phone Tunde Levi MD Primary Care Provider + Reason for Visit * Reason Comments Return Visit Encounter Details Date Type Department Care Team (Late st Contact Info) Description 01/08/2023 9:45 AM EST Office Visit Gynecology/Obstetric s Lobito'adelso Mcfarlane [address] [facility] [place] [address] Anabela Stallworth CRNP [address] [facility] [place] [address] Azucena Mcfarlane Stress Tests Tonya [address] [place] [address] Supervision of high risk in third trimester*; Obesity in , antepartum; Recurrent loss, currently ; Antepartum multigravida of advanced maternal age; Hypothyroid in , antepartum; Medication exposure during first trimester of ; Uterine fibroid in ; Gestational hypertension without significant proteinuria, antepartum; PUPPP (pruritic urticarial papules and plaques of ); Polyhydramnios, third trimester, fetus 1 Allergies Active Allergy Reactions Criticality Noted Date [...] meds). 90 Tablet 1 08/24/2022 Active Breast PumpIndications:[place] st feeding status of mother Double electric [...] multigravida 35+ 06/2022 Overview: Age 37 at EDC Desires Qnatal Last Assessment & Plan: She [...] be handled at the discretion of the seat trimmer. For women with a history of treated [...] 32 weeks. 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 Never true 08/31/2022 Dennis Depression Scale Answer Date Recorded Dennis Depression Scale Total 4 11/07/2022 The thought [...] on file documented as of this encounter Last Filed Vital Signs Vital Sign Reading Time Taken Comments Blood Pressure 158/100 01/08/2023 9:48 AM EST Pulse - - Temperature - - Respiratory Rate - - Oxygen Saturation - - Inhaled Oxygen Concentration - - Weight 93.9 kg (207 lb) 01/08/2023 9:48 AM EST Height 160 cm (5' 3") 01/08/2023 9:48 AM EST Body Mass Index 36.67 01/08/2023 9:48 AM EST documented in this encounter Progress Notes * Anabela Stallworth CRNP - 01/08/2023 10:28 AM EST 37w3d No concerns. Baby is active. No contractions, no bleeding. Elevated BP in office x2, 158/100, states she took her meds at [address] Parry, pt to go to L&D for evaluation. ASSESSMENT assessment with Non-stress Test completed on 01/08/2023 at 37.3weeks gestation for indicationof gestational HTN heart baseline: 140 bpm Variability: Moderate Decelerations: absent Accelerations: present Contractions: None NST start time: 0944 NST stop time: 1023 NST strip reviewed, interpreted, and approved by OB providerAnabela CRNP . NST strip stored in clinic storage file documented in this encounter Plan of Treatment Upcoming Encounters Date Type Department Care Team (Late st Contact Info) Description 01/11/2023 10:15 AM EST Office Visit Gynecology/Obstetrics Marian Mcfarlane [address] [place], [place] [address] Anabela Stallworth CRNP [address] [place] [address] Mcfarlane, Non Stress Tests Tonya [address] [place], [place] [address] 01/15/2023 1:45 PM EST Office Visit Gynecology/Obstetrics Marian Mcfarlane [address] [place] [address] Anabela Stallworth CRNP [address] [place], [place] [address] Denys Non Stress Tests Tonya [address] [place] [address] 01/21/2023 11:00 AM EST Office Visit Gynecology/Obstetrics Marian Mcfarlane [address] [place] [address] Clemencia Jurado PA-C [address] [place] [address] Denys Non Stress Tests Tonya [address] [place] [address] Health Maintenance Due Date Last Done Comments Hepatitis B (1 of 3 - 3-dose series) 1986 COVID-19 Vaccine (#1) 05/14/1987 Influenza Vaccine (FLU shot) (#1) 2022 01/20/2010 PAP SMEAR-EVERY 5 YRS,AGES 21-100 09/02/2023 09/01/2018, 05/30/2012, 01/02/2011 Depression Screening 12/19/2023 12/18/2022 TSH 12/29/2023 12/28/2022, 10/13, 11/07/2022, Additional history exists GFR 01/05/2024 01/04/2023, 12/12, 11/26/2022, Additional history exists Diabetes Screening 01/04/2026 01/04/2023, 0 08/09/2022, 07/03/2018, Additional history exists DTaP,Tdap,and Td Vaccines (3 [...] Not on filedocumented as of this encounter Visit Diagnoses Diagnosis Supervision of high risk in third trimester- Primary Unspecified high-risk Obesity in , antepartum Obesity complicating , childbirth, or the puerperium, antepartum condition or complication Recurrent loss, currently Recurrent loss, unspecified as to episode of care or not applicable Antepartum multigravida of advanced maternal age Hypothyroid in , antepartum Thyroid dysfunction, antepartum Medication exposure during first trimester of Supervision of other high-risk Uterine fibroid in Tumors of body of uterus, unspecified as to episode of care in Gestational hypertension without significant proteinuria, antepartum PUPPP (pruritic urticarial papules and plaques of ) Other specified complication of , unspecified as to episode of care Polyhydramnios, third trimester, fetus 1 documented in this encounter Care Teams Career And Guidance Counselor Relationship Specialty Start Date End Date Tunde Levi MD [address] [place] [id number] PCP - General Family Medicine 01/04/15 documented as of this encounter
--- NOTE | 2023-01-09 19:58 | Obstetrical Progress Note ---
Date of Service January 09, 2023 Assessment & Plan Admission and Anticipated Discharge Date Admission Date: January 09, 2023 Subjective Patient is reevaluated. She has been feeling contractions since 1 hour after Cervidil was placed. They are getting more painful. Pain is 5/10 She ate dinner and kept it down FHR categ I [place] ctxs q 2-4 min Plan for 1 dose of STadol Continue to monitor closely. Results & Data Vital Signs (Past 12 Hours) Vital Signs Temp Pulse Resp BP 01/09/23 19:16 36.6 C 88 18 145/93 H 01/09/23 15:28 36.8 C 93 H 18 137/90 01/09/23 15:09 93 H 123/83 01/09/23 11:52 36.7 C 18 01/09/23 11:42 95 H 127/86 01/09/23 11:25 108 H 130/92
[2023-01-09] MEDS: BUTORPHANOL TARTRATE 1 MG/ML VIAL IV PRN ×2 (20:00→23:23)
[2023-01-09] MEDS ORDERED: ACETAMINOPHEN 1,000 MG/100 ML VIAL IV PRN (23:23)
--- NOTE | 2023-01-09 23:26 | Obstetrical Progress Note ---
Date of Service January 09, 2023 Assessment & Plan Admission and Anticipated Discharge Date Admission Date: January 09, 2023 Subjective Patient is asking more pain medications. The Stadol was given at 8 PM and help with the pain for a while and now it is coming back. Vaginal exam, patient is very uncomfortable during exam, Cervidil is removed first then cervix was checked to be unchanged, 1 to 2 cm, posterior, head is very high at -4. heart rate category 1, [place] showing contractions every 2 to 4 minutes, Plan for pain medication Stadol once and then continue with cervical ripening with p.o. Cytotec. Continue to monitor. Results & Data Vital Signs (Past 12 Hours) Vital Signs Temp Pulse Resp BP 01/09/23 22:44 37.0 C 93 H 18 133/90 01/09/23 19:16 36.6 C 88 18 145/93 H 01/09/23 15:28 36.8 C 93 H 18 137/90 01/09/23 15:09 93 H 123/83 01/09/23 11:52 36.7 C 18 01/09/23 11:42 95 H 127/86 01/09/23 11:25 108 H 130/92
[2023-01-10] MEDS: miSOPROStoL 50 MCG TAB PO SCH ×3 (05:05→18:29)
[2023-01-10] MEDS: LEVOTHYROXINE SODIUM 125 MCG TABLET PO SCH (06:15)
[2023-01-10] MEDS ORDERED: FERROUS SULFATE 325 MG TAB PO SCH (08:00)
[2023-01-10] MEDS: PRENATAL VITAMIN 1 TAB PO SCH (08:43)
[2023-01-10] MEDS: LABETALOL HCL 100 MG TAB PO SCH ×3 (08:43→20:41)
[2023-01-10] MEDS ORDERED: OXYTOCIN 30 UNITS/NSS 30 UNITS/500 ML BAG IV PRN ×2 (09:42→17:22)
[2023-01-10] MEDS: LACTATED RINGER'S 1,000 ML IV PRN ×2 (10:23→15:27)
--- NOTE | 2023-01-10 11:59 | Labor Progress Brief Note ---
Date of Service January 10, 2023 Assessment & Plan Admission and Anticipated Discharge Date Admission Date: January 09, 2023 Physical Exam Genitourinary: Manual OB Exam: + cervical dilation fingertip, + cervical effacement 50% and + station high OB Exam Monitor Tracing: + external FHT monitor used, + external uterine monitor used, + category I and + normal FHT variability Cervix high and posterior. firm. vertex ballotable. Results & Data Vital Signs (Past 12 Hours) Vital Signs Temp Pulse Resp BP Pulse Ox 01/10/23 11:02 87 144/99 H 01/10/23 10:35 97 H 156/98 H 01/10/23 10:30 18 01/10/23 10:30 18 01/10/23 10:18 88 149/110 H 01/10/23 08:43 89 160/95 H 01/10/23 07:36 96 H 169/94 H 01/10/23 03:39 86 137/90 01/10/23 03:38 16 01/10/23 03:38 36.7 C 16 01/10/23 00:57 90 100 01/10/23 00:52 94 H 100 01/10/23 00:47 101 H 99 01/10/23 00:42 90 100 01/10/23 00:37 81 100 01/10/23 00:32 87 99 01/10/23 00:27 86 99 01/10/23 00:22 93 H 99 01/10/23 00:17 81 100 01/10/23 00:12 89 100 01/10/23 00:07 88 99 01/10/23 00:02 86 99
--- NOTE | 2023-01-10 15:28 | Labor Progress Brief Note ---
Date of Service January 10, 2023 Assessment & Plan Admission and Anticipated Discharge Date Admission Date: January 09, 2023 Physical Exam Genitourinary: Manual OB Exam: + cervical dilation 5 cm, + cervical effacement 90% and + station high OB Exam Monitor Tracing: + external FHT monitor used, + category I and + normal FHT variability Results & Data Vital Signs (Past 12 Hours) Vital Signs Temp Pulse Resp BP 01/10/23 14:37 81 176/98 H 01/10/23 13:50 92 H 163/101 H 01/10/23 12:36 36.9 C 81 20 142/92 H 01/10/23 11:53 18 01/10/23 11:53 18 01/10/23 11:02 87 144/99 H 01/10/23 10:35 97 H 156/98 H 01/10/23 10:30 18 01/10/23 10:30 18 01/10/23 10:18 88 149/110 H 01/10/23 08:43 89 160/95 H 01/10/23 07:36 96 H 169/94 H 01/10/23 03:39 86 137/90 01/10/23 03:38 16 01/10/23 03:38 36.7 C 16
[2023-01-10] MEDS ORDERED: ePHEDrine sulfate 50 MG/ML AMP ONE (15:32)
[2023-01-10] MEDS ORDERED: fentANYL 2 MCG/ML BUPIVacaine 0.125%-NSS 100ML BAG ONE (15:32)
[2023-01-10] MEDS ORDERED: fentaNYL citrate PF 100 MCG/2 ML VIAL ONE (15:32)
[2023-01-10] MEDS ORDERED: SODIUM CHLORIDE 0.9% PF INJ 10 ML VIAL ONE (15:32)
[2023-01-10] MEDS ORDERED: LIDOCAINE 2%/EPINEPHRINE 1:200,000 20 ML PF ONE (15:32)
[2023-01-10] MEDS ORDERED: BUPIVACAINE 0.25% PF 30 ML VIAL ONE (15:32)
[2023-01-10] MEDS ORDERED: NALOXONE HCL 0.4 MG/1 ML VIAL/CARP IV PRN (15:40)
[2023-01-10] MEDS ORDERED: ROPIVACAINE 0.5% PF 5 MG/ML 20 ML VIAL EPI PRN (15:40)
[2023-01-10] MEDS ORDERED: ONDANSETRON INJ 2 MG/ML 2 ML VIAL IV PRN (15:40)
[2023-01-10] MEDS ORDERED: NALOXONE HCL 1 MG in SODIUM CHLORIDE 0.9% 1,000 ML IV PRN (15:40)
[2023-01-10] MEDS ORDERED: fentANYL 2 MCG/ML BUPIVacaine 0.125%-NSS 100ML BAG EPI PRN (15:40)
[2023-01-10] MEDS ORDERED: fentaNYL citrate PF 100 MCG/2 ML VIAL EPI STA (15:40)
[2023-01-10] MEDS ORDERED: NALBUPHINE HCL 5 MG in SYRINGE 0 ML IV PRN (15:40)
[2023-01-10] MEDS ORDERED: fentaNYL citrate PF 100 MCG/2 ML VIAL EPI PRN (15:40)
[2023-01-10] MEDS ORDERED: BUPIVACAINE 0.25% PF 30 ML VIAL EPI PRN (15:40)
[2023-01-10] MEDS ORDERED: diphenhydrAMINE 50 MG/ML VIAL IV PRN (15:40)
[2023-01-10] MEDS ORDERED: ePHEDrine sulfate 50 MG/ML AMP IV PRN (15:40)
[2023-01-10] MEDS ORDERED: SODIUM CHLORIDE 0.9% PF INJ 10 ML VIAL EPI STA (15:40)
[2023-01-10] MEDS ORDERED: LIDOCAINE 2%/EPINEPHRINE 1:200,000 20 ML PF EPI STA (15:40)
[2023-01-10] MEDS ORDERED: LIDOCAINE 2% MPF LOCAL 5 ML VIAL EPI PRN (15:40)
[2023-01-10] MEDS ORDERED: SODIUM CHLORIDE 0.9% PF INJ 10 ML VIAL EPI PRN (15:40)
[2023-01-10] MEDS ORDERED: BUPIVACAINE 0.25% PF 30 ML VIAL EPI STA (15:40)
--- NOTE | 2023-01-10 15:57 | Anesthesiology Consultation ---
Date of Service January 10, 2023 Assessment & Plan (1) Encounter for pre-operative examination: Chart Review Chart Review: Patient NOT seen in Pre Admission Testing and Acceptable Risk for Labor Epidural Consults Requested none History Height/Weight Height: 5 ft 3 in Weight: 93.894 kg Allergies Allergy/AdvReac Type Severity Reaction Status Date / Time tetracycline Allergy Unknown DOXYCYCLINE Verified 08/09/11 22:00 doxycycline AdvReac Gastrointestinal Verified 01/09/23 15:34 Upset Medications Home Medications Medication Instructions Recorded Confirmed Last Taken Multivit/Min/Iron/Fol Ac/Pren 1 tab PO DAILY #0 tabs 08/23/11 01/09/23 01/08/23 21:00 ( Vitamin) OMEPRAZOLE (Prilosec) 20 mg PO DAILY ##0 08/23/11 01/09/23 01/08/23 21:00 ferrous sulfate 325 mg (65 mg 325 mg PO DAILY 01/04/23 01/09/23 01/07/23 iron) tablet (iron) labetalol 100 mg tablet 100 mg PO TID 01/04/23 01/09/23 01/09/23 09:00 levothyroxine 125 mcg capsule 125 mcg PO DAILY 01/04/23 01/09/23 01/08/23 Active Medications Generic Name Dose Route Start Last Admin Trade Name Freq PRN Reason Stop Dose Admin Butorphanol Tartrate 1 mg 01/09/23 12:56 01/09/23 23:23 Butorphanol Tartrate 1 Mg/Ml Vial IV 02/08/23 12:55 1 mg Q3HWA PRN Administration Pain Ferrous Sulfate 325 mg 01/10/23 08:00 01/10/23 08:43 Ferrous Sulfate 325 Mg Tab PO 02/09/23 07:59 325 mg DAILY@0800 VANDANA Administration Lactated Ringer's 1,000 mls @ 150 mls/hr 01/09/23 11:46 01/10/23 15:27 Lr IV 01/11/23 11:45 999 mls/hr .Q6H40M PRN Administration L&D Protocol Protocol Acetaminophen 1,000 mg in 100 mls @ 400 mls/hr 01/09/23 23:23 01/10/23 15:10 Ofirmev IV 01/12/23 23:22 Infused Q8H PRN Infusion Pain Oxytocin 30 units in 500 mls @ 5 mls/hr 01/10/23 09:42 01/10/23 15:10 Pitocin 30 Units/Nss IV 01/12/23 09:41 0.3 units/hr .Q24H PRN 5 mls/hr Labor Induction/Augmentation Titration Protocol 0.3 UNITS/HR Labetalol HCl 100 mg 01/09/23 14:00 01/10/23 13:53 Labetalol Hcl 100 Mg Tab PO 02/08/23 13:59 100 mg TID VANDANA Administration Levothyroxine Sodium 125 mcg 01/10/23 06:30 01/10/23 06:15 Levothyroxine Sodium 125 Mcg Tablet PO 02/09/23 06:29 125 mcg DAILYBB VANDANA Administration Misoprostol 50 mcg 01/10/23 00:30 01/10/23 14:52 Misoprostol 50 Mcg Tab PO 02/09/23 00:29 Not Given Q4H VANDANA Pantoprazole Sodium 40 mg 01/09/23 12:00 01/09/23 20:57 Pantoprazole 40 Mg Tab PO 02/08/23 11:59 40 mg DAILY VANDANA Administration Prenat Multivit/Digital Campaign Specialist/Iron/Folic Ac 1 tab 01/10/23 08:00 01/10/23 08:43 Vitamin 1 Tab PO 02/09/23 07:59 1 tab DAILY@0800 VANDANA Administration Past Medical History Medical History (Updated 01/10/23 @ 15:56 by Nahun Ospina MD) Encounter for pre-operative examination Left ACL tear with repair PUPP (pruritic urticarial papules and plaques of ) Polyhydramnios Hypothyroid Patient's mom has Grave's Disease GERD (gastroesophageal reflux disease) History of recurrent miscarriages Exercise / Class Metabolic Activity II 4-5 Yardwork/Stairs/Walk up hill Past Family History Family History Mother Graves disease Grandmother (Maternal) Stroke Grandmother (Maternal) Hypertension Other Family history non-contributory Past Anesthesia History No Hx of Anesthesia Complications and No Family Hx of Anesthesia Complications Social History Smoking Status: Never smoker Hx Alcohol Use: No Hx Substance Use: No Physical Exam Vital Signs Last Vital Signs Temp 36.9 C 01/10/23 12:36 Pulse 96 H 01/10/23 15:54 Resp 20 01/10/23 12:36 BP 183/110 H 01/10/23 15:53 Pulse Ox 100 01/10/23 15:54 O2 Del Method Room Air 01/09/23 23:00 Testing Laboratory Results 01/09/23 12:41 Blood Type O Positive 01/09/23 12:41 Antibody Screen NEGATIVE 01/09/23 12:41
--- NOTE | 2023-01-10 16:59 | Labor Progress Brief Note ---
Date of Service January 10, 2023 Assessment & Plan Admission and Anticipated Discharge Date Admission Date: January 09, 2023 Physical Exam Genitourinary: Manual OB Exam: + cervical dilation 10 cm, + cervical effacement 100%, + station -1 and + amniotic fluid clear OB Exam Monitor Tracing: + external FHT monitor used, + external uterine monitor used, + category I and + normal FHT variability AROM with Amni-hook clear fluid Results & Data Vital Signs (Past 12 Hours) Vital Signs Temp Pulse Resp BP Pulse Ox 01/10/23 16:54 85 100 01/10/23 16:51 85 152/99 H 01/10/23 16:49 84 100 01/10/23 16:44 79 98 01/10/23 16:39 72 100 01/10/23 16:35 81 148/85 H 01/10/23 16:34 76 100 01/10/23 16:29 79 99 01/10/23 16:24 77 99 01/10/23 16:20 78 167/101 H 01/10/23 16:19 77 99 01/10/23 16:17 78 174/104 H 01/10/23 16:14 79 160/104 H 100 01/10/23 16:11 83 164/102 H 01/10/23 16:09 89 100 01/10/23 16:08 80 169/106 H 01/10/23 16:05 81 169/105 H 01/10/23 16:04 84 99 01/10/23 16:02 77 182/109 H 01/10/23 16:00 82 175/104 H 01/10/23 15:59 100 01/10/23 15:59 77 01/10/23 15:59 75 195/125 H 01/10/23 15:56 82 196/116 H 01/10/23 15:54 96 H 100 01/10/23 15:53 85 183/110 H 01/10/23 15:51 88 186/106 H 01/10/23 15:49 93 H 100 01/10/23 15:45 100 H 92 01/10/23 15:44 99 H 95 01/10/23 15:39 85 100 01/10/23 15:36 87 90 01/10/23 15:34 95 H 100 01/10/23 15:29 87 100 01/10/23 14:37 81 176/98 H 01/10/23 13:50 92 H 163/101 H 01/10/23 12:36 36.9 C 81 20 142/92 H 01/10/23 11:53 18 01/10/23 11:53 18 01/10/23 11:02 87 144/99 H 01/10/23 10:35 97 H 156/98 H 01/10/23 10:30 18 01/10/23 10:30 18 01/10/23 10:18 88 149/110 H 01/10/23 08:43 89 160/95 H 01/10/23 07:36 96 H 169/94 H
[2023-01-10] MEDS ORDERED: HYDROCORTISONE ACETATE 25 MG SUPP PR PRN (17:22)
[2023-01-10] MEDS ORDERED: ACETAMINOPHEN 325 MG TAB PO PRN (17:22)
[2023-01-10] MEDS ORDERED: bisacodyL 10 MG SUPP PR PRN (17:22)
[2023-01-10] MEDS ORDERED: BENZOCAINE 20% SPRY 85 APPLN/85 GM CAN EXT PRN (17:22)
[2023-01-10] MEDS ORDERED: DIPHTHERIA/TETANUS/PERTUSSIS Vaccine (Tdap, Age 7+yrs) 0.5mL SYR/VL IM ONE (17:22)
--- NOTE | 2023-01-10 17:23 | Anesthesia Procedure Note ---
Date of Service January 10, 2023 Anesthesia Post Epidural Note Vital Signs Vital Signs: Temp Pulse Resp BP Pulse Ox O2 Del Method 36.9 C 88 20 134/65 91 Room Air 01/10/23 12:36 01/10/23 17:21 01/10/23 12:36 01/10/23 17:21 01/10/23 17:09 01/09/23 23:00 Pain Intensity Back: Pain Intensity: 2 Notes Mental Status: alert / awake / arousable and participated in evaluation Patient Amnestic to Procedure: No Nausea / Vomiting: adequately controlled Pain: adequately controlled Airway Patency, RR, SpO2: stable & adequate BP & HR: stable & adequate Hydration State: stable & adequate Neuraxial Anesthesia: was administered and sensory block is resolving Anesthetic Complications: no major complications apparent and Pt Satisfied with anesthetic care Epidural: Removed without complications and With tip intact
--- NOTE | 2023-01-10 17:26 | Delivery Summary ---
Vaginal Delivery Summary Date of Service January 10, 2023 Vaginal Delivery Summary live male TONIO over intact perineum with nuchal cord x1 reduced at delivery with Apgars 7/8 weight pending. Cord blood obtained followed by spontaneous delivery of intact placenta. No tears. EBL 100 ml. Final sponge and instrument count are correct. Mom and baby stable.
[2023-01-10] MEDS: DOCUSATE SODIUM 100 MG CAP PO SCH (20:42)
[2023-01-10] MEDS ORDERED: Nursing to Pharmacy Communication SCH (21:00)
[2023-01-10] MEDS ORDERED: PANTOprazole 40 MG TAB PO SCH (21:00)
[2023-01-10] MEDS: IBUPROFEN 600 MG TAB PO PRN (23:23)
[2023-01-11] MEDS: IBUPROFEN 600 MG TAB PO PRN ×3 (04:51→15:09)
[2023-01-11] MEDS: LEVOTHYROXINE SODIUM 125 MCG TABLET PO SCH (05:52)
[2023-01-11 06:41] LABS: Hematocrit (blood only) 27.2 % (37.0-47.0); Hemoglobin 8.8 g/dl (12.0-16.0); Mean Corpuscular Hgb Conc 32.4 g/dL (32.0-36.0); Mean Corpuscular Volume 89.8 fL (80.0-100.0); Mean Platelet Volume 9.7 fL (9.4-12.4); Platelet Count 268 K/uL (130-400); RDW Coefficient of Variation 14.4 % (11.5-14.5); RDW Standard Deviation 46.5 fL (36.4-46.3); Red Blood Count 3.03 M/uL (4.20-5.40); White Blood Count 10.46 K/ul (4.8-10.8)
[2023-01-11] MEDS ORDERED: PRENATAL VITAMIN 1 TAB PO SCH (08:00)
[2023-01-11] MEDS ORDERED: FERROUS SULFATE 325 MG TAB PO SCH (08:00)
[2023-01-11] MEDS: LABETALOL HCL 100 MG TAB PO SCH ×2 (09:07→15:09)
[2023-01-11] MEDS: DOCUSATE SODIUM 100 MG CAP PO SCH (09:07)
[2023-01-11] MEDS: PRENATAL VITAMIN 1 TAB PO SCH (09:07)
--- NOTE | 2023-01-11 09:27 | Obstetrical Progress Note ---
Date of Service January 11, 2023 Assessment & Plan (1) Normal course: PPD #1 pt doing well pt wishes to be discharged home d/c home with instructions Results & Data Vital Signs (Past 12 Hours) Vital Signs Temp Pulse Resp BP O2 Del Method 01/11/23 04:45 36.6 C 80 16 139/85 Room Air 01/11/23 00:00 36.6 C 84 16 124/80 Room Air
[2023-01-11] MEDS ORDERED: bisacodyL 5 MG TABEC PO SCH (20:00)
== END 2023-01-11 19:10 | disposition home or self-care (01) | DRG 807 ==
LOC: 4S1 11:06 → 4E2 01-10 20:41